=== PATIENT | female | born 2000 | race Native Hawaiian/Other Pacific Islander ===

== ENCOUNTER 2022-09-29 15:20 | Emergency (ER) | payer BC ==
[~2022-09-29] VITALS: Ht 160 cm; Wt 122.5 kg
[2022-09-29 15:27] VITALS: TEMP 98.1
[2022-09-29 16:15] VITALS: BP 128/88
== END 2022-09-29 16:20 | disposition home or self-care (01) ==
LOC: ED 15:20
DX: N39.0 Urinary tract infection, site not specified (principal)
CPT/HCPCS: 81000; 87077; 87086; 87088; 87186; 96372; 99282; J0696